=== PATIENT | female | born 1985 ===

== ENCOUNTER 2024-04-07 13:14 | Outpatient (CLI) | payer BC, SELFPAY ==
[2024-04-07 12:50] LABS: Abs Immature Grans 0.01 10^3/uL (0.0-0.06); Absolute Basophil Count 0.06 10^3/uL (0.0-0.2); Absolute Eosinophil Count 0.07 10^3/uL (0.0-0.7); Absolute Lymphocyte Count 2.03 10^3/uL (1.2-3.4); Absolute Monocyte Count 0.41 10^3/uL (0.1-0.8); Absolute Neutrophil Count 2.75 10^3/uL (1.2-6.7); Basophils % 1.1 %; Eosinophils % 1.3 %; HCT 40.4 % (36.0-46.0); HGB 13.5 g/dL (11.2-15.7); Immature Grans % 0.2 %; Lymphocytes % 38.1 %; MCH 30.8 pg (27.0-33.0); MCHC 33.4 % (32.0-36.0); MCV 92 fL (80-95); MPV 9.4 fL (8.0-11.0); Monocytes % 7.7 %; Neutrophils % 51.6 %; Platelet Count 232 10^3/uL (130-400); RBC 4.38 10^6/uL (3.93-5.22); RDW 11.3 % (11.7-14.6); RDW-SD 38.6 fL; WBC 5.33 10^3/uL (4.4-10.8)
[2024-04-07 13:28] LABS: Iron 69 ug/dL (50-170); Total Iron Binding Capacity 303 ug/dL (250-450); Transferrin Sat 23 % (15-50)
[2024-04-07 14:02] LABS: ALT 19 U/L (14-59); AST 26 U/L (15-37); Albumin 4.2 g/dL (3.4-5.0); Alkaline Phosphatase 76 U/L (46-116); Anion Gap 6.2 mmol/L (3-11); BUN 17 mg/dL (7-18); CO2 28.8 mmol/L (21.0-32.0); Calcium 9.6 mg/dL (8.5-10.1); Chloride 105 mmol/L (98-107); Estimated GFR 73.04 (mL/min/1.73m2); Ferritin 21 ng/mL (8-252); Glucose 87 mg/dL (74-106); Potassium 3.5 mmol/L (3.5-5.1); Sodium 140 mmol/L (136-145); TSH 1.68 uIU/mL (0.36-3.74); Total Protein 7.7 g/dL (6.4-8.2); Vitamin B12 561 pg/mL (193-986); Vitamin D 25 Total 64.4 ng/mL (30-100)
[2024-04-07 14:20] LABS: FREE T4 0.78 ng/dL (0.76-1.46)
[2024-04-07 22:15] LABS: Rheumatoid Factor <8.6 IU/mL (<12.0)
[2024-04-07 22:43] LABS: T3,Free 3.4 pg/mL (2.8-5.3)
[2024-04-08 00:05] LABS: Estradiol 30 pg/mL (See Note); Progesterone <0.2 ng/mL (See Table)
[2024-04-10 10:35] LABS: FSH 11.5 mIU/mL (See Note); LH 2.9 mIU/mL (See Note)
[2024-04-10 11:33] LABS: Cyclic Citrullinated Peptide <2.5 U/mL (<5.0)
[2024-04-10 12:02] LABS: ANA Interpretation Negative (Negative)
[2024-04-10 17:27] LABS: Copper, Serum 50 mcg/dL (77-206)
[2024-04-10 17:28] LABS: Zinc, S 64 mcg/dL (60-106)
[2024-04-11 22:55] LABS: Iodine, S 51 ng/mL (40-92)
== END 2024-04-07 13:15 | disposition home or self-care (01) ==
PROVIDERS: Visit Provider Naturopath
DX: B37.0 Candidal stomatitis (principal); R84.5 Abnormal microbiological findings in specimens from respiratory organs and thorax
CPT/HCPCS: 36415; 80053; 82306; 82525; 84630; 86200; 82190; 82607; 82670; 82728; 83001; 83002; 83540; 83550; 84144; 84439; 84443; 84481; 85025; 86038; 86431

== ENCOUNTER 2024-06-28 12:15 | Outpatient (CLI) | payer BC, SELFPAY ==
[2024-06-28 22:37] LABS: Estradiol 59 pg/mL (See Note); Progesterone 0.2 ng/mL (See Table)
== END 2024-06-28 12:16 | disposition home or self-care (01) ==
LOC: LBO 12:15
PROVIDERS: Visit Provider Naturopath
DX: B37.0 Candidal stomatitis (principal); N92.1 Excessive and frequent menstruation with irregular cycle; R53.83 Other fatigue; R84.5 Abnormal microbiological findings in specimens from respiratory organs and thorax; R45.86 Emotional lability
CPT/HCPCS: 36415; 82670; 84144

== ENCOUNTER 2024-12-14 15:27 | Outpatient (CLI) | payer BC, SELFPAY ==
[2024-12-14 15:50] LABS: TSH 0.97 uIU/mL (0.36-3.74)
[2024-12-14 16:38] LABS: Ferritin 25 ng/mL (8-252)
[2024-12-14 23:24] LABS: T3,Free 3.4 pg/mL (2.8-5.3)
== END 2024-12-14 15:28 | disposition home or self-care (01) ==
PROVIDERS: Visit Provider Naturopath
DX: R42 Dizziness and giddiness (principal); R53.83 Other fatigue; E07.9 Disorder of thyroid, unspecified; D50.9 Iron deficiency anemia, unspecified
CPT/HCPCS: 36415; 82728; 84439; 84443; 84481